=== PATIENT | male | born 1975 | race Caucasian/White ===

== ENCOUNTER 2016-10-17 12:57 | Emergency (ER) | payer BC ==
[2016-10-17 13:09] VITALS: BP 113/76
--- NOTE | 2016-10-17 14:01 | UC ---
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 PRESENTS TODAY WITH ACUTE ONSET TWO DAY HISTORY OF LEFT EYE INCREASED BLURRINESS. CHANGED CONTACT LENS WITHOUT REMEDY. NO FEVER. NO REDNESS OR DISCHARGE. NO PAIN WITH EYE MOVEMENT. NO HEADACHE. NO DISCHARGE. NO LOSS OF VISUAL FIELD. NO MOTOR, SPEECH OR NEUROLOGIC DEFECTS. NO NEW PHOTOPHOBIA (PATINET COMPLAINS OF CHRONIC LIGHT HYPERSENSITIVITY ). ADDITIONAL NOTE: [facility] CALLED FOR CONSULT, BUT WEEKEND CALL THERAPIST STATED THAT SCOTT WAS NOT PATENT LAW SPECIALIST FOR [facility], ONLY PATENT LAW SPECIALIST FOR EMERGENCY DEPARTMENT. - History of Current Complaint Chief Complaint: UCEye Stated Complaint: EYE/FOCUS COMPLAINT Time Seen by Provider: 10/17/16 13:07 Hx Obtained From: Patient, Family/Medical Office Supervisor Onset/Duration: Sudden Onset, Lasting Days, Still Present, Worse Since - WORSENING OVER THE LAST TWO DAYS Severity Initially: Mild Severity Currently: Mild Location of Injury: Other - NO INJURY IMPAIRED FOCUS LEFT EYE Character: Dull Aggravating Factor(s): Nothing Alleviating Factor(s): Nothing Associated Signs And Symptoms: Positive: Vision Impairment Left Related History: Other - HISTORY OF MACULAR DYSTROPHY - Risk Factors Penetrating Injury Risk Factor: Negative Globe Rupture Risk Factors: Negative Optic Artery Occlusion Risk Factors: Negative - Allergies/Home Medications Allergies/Adverse Reactions: Allergies Allergy/AdvReac Type Severity Reaction Status Date / Time No Known Allergies Allergy Verified 02/17/16 12:37 PMH/Surg Hx/FS Hx/Imm Hx Previously Healthy: Yes Endocrine History Of: Denies: Diabetes, Thyroid Disease Cardiovascular History Of: Denies: Cardiac Disorders, Hypertension, Pacemaker/ICD Respiratory History Of: Denies: COPD, Asthma GI/ History Of: Denies: Ulcer - Surgical History Surgical History: Yes Surgery Procedure, Year, and Place: COLONOSCOPY WITH SEDATION, RIGHT KNEE MENISCUS SURGERY; subq cysts removed (wrist and back) - Family History Known Family History: Positive: Hypertension - Social History Occupation: Employed Full-time Lives: With Family Alcohol Use: Occasionally Alcohol Amount: 3-4 16 OUNCE BEERS/WEEK Substance Use Type: None Smoking Status (MU): Never Smoked Tobacco Review of Systems Constitutional: Negative Skin: Negative Eyes: Blurred Vision - LEFT ONLY ENT: Negative Respiratory: Negative Cardiovascular: Negative Gastrointestinal: Negative Genitourinary: Negative Motor: Negative Neurovascular: Negative Musculoskeletal: Negative Neurological: Negative Psychological: Negative All Other Systems Reviewed And Are Negative: Yes Physical Exam Triage Information Reviewed: Yes Appearance: Well-Appearing, No Pain Distress, Well-Nourished Vital Signs: Initial Vital Signs Temp 98.5 F 10/17/16 13:03 Pulse 92 10/17/16 13:03 Resp 18 10/17/16 13:03 BP 113/76 10/17/16 13:03 Pulse Ox 99 10/17/16 13:03 Eyes: Positive: Conjunctiva Clear, Other: - LEFT EYE BLURRED FOCUS; INCREASED EYE STRAIN IN LEFT EYE TO COORDINATE AND IDENTIFY OBJECTS ENT Exam: Normal ENT: Positive: Normal ENT inspection, Hearing grossly normal, Pharynx normal, TMs normal Dental Exam: Normal Neck exam: Normal Neck: Positive: Supple, Nontender, No Lymphadenopathy Respiratory Exam: Normal Respiratory: Positive: Chest non-tender, Lungs clear, Normal breath sounds, No respiratory distress, No accessory muscle use Cardiovascular Exam: Normal Cardiovascular: Positive: RRR, No Murmur, Pulses Normal Abdominal Exam: Normal Abdomen Description: Positive: Nontender, No Organomegaly Musculoskeletal Exam: Normal Musculoskeletal: Positive: Strength Intact, ROM Intact Neurological Exam: Normal, Other - CN 2 -12 INTACT; NORMALLY RESPONSIVE PATELLAR REFLEXES Neurological: Positive: Alert, Muscle Tone Normal Psychological Exam: Normal Skin Exam: Normal Eye Complaint Course/Dx - Differential Dx/Diagnosis Differential Diagnosis/HQI/PQRI: Corneal Abrasion, Detached Retina, Glaucoma, Orbital Cellulitis, Retinal Artery Occlusion Provider Diagnoses: LEFT EYE VISUAL IMPAIRMENT - Physician Notification/Consults Discussed Patient Care With: DR MARCH Time Discussed With Above Provider: 13:35 Instructed by Provider To: MD Will See In ED Discharge - Discharge Plan Condition: Stable Disposition: TRANS HIGHER LV OF CARE FAC Referrals: No Primary Care Phys,NOPCP [Medical Doctor] -
== END 2016-10-17 14:00 | disposition short-term general hospital (02) ==
LOC: UCEAST 12:57
DX: H54.62 Unqualified visual loss, left eye, normal vision right eye (principal); H35.30 Unspecified macular degeneration
CPT/HCPCS: 99212; G0463

== ENCOUNTER 2016-10-17 14:18 | Emergency (ER) | payer BC ==
--- NOTE | 2016-10-17 16:10 | ED ---
Throat Pain/Nasal Congestion - HPI Summary HPI Summary: Pt here w/ acute on chronic Lt eye change which started yesterday. Noticed a change while working on his computer after a few hours in the AM that felt like he was "wearing someone else's glasses" - difficulty focusing, like his contact was not seated correctly. He went home to rest eyes from computer screen - removed contacts and rinsed them before reapplying. No change. He then tried a different pair of contacts to see if this would help - no change. Watched a movie that night which was "okay". Took contacts out before bed. Slept well. Put contacts back onto eye in the AM and issue still present which is why he came in today. Initially called Kathy's office for an appt this week but only spoke w/ his on-call service. Went to who recommended he come here as Kathy was only on-call for the ED. Also that pt may benefit from head CT per pt. He has not tried wearing his glasses only and does have an astigmatism which requires contact lens to be seated just so for clarity. He also admits to prolonged bright sun exposure this past week, one day in particular which resulted in prolonged sun light in his site. He denies trauma to the eye or head and no pain, itching, irritation, swelling, redness or d/c nor does he have floaters or a veil in his vision. Denies nausea, vomiting, photophobia, neck pain, numbness, weakness, difficulty focusing mentally, confusion. No stefano MCKNIGHT although he reports a mild straining MCKNIGHT on this side from difficulty trying to focus w/ this eye. - History of Current Complaint Chief Complaint: EDEyeProblem Time Seen by Provider: 10/17/16 15:24 Hx Obtained From: Patient, Family/Defective Cigarette Slitter - - Allergies/Home Medications Allergies/Adverse Reactions: Allergies Allergy/AdvReac Type Severity Reaction Status Date / Time No Known Allergies Allergy Verified 02/17/16 12:37 PMH/Surg Hx/FS Hx/Imm Hx Previously Healthy: Yes Endocrine/Hematology History: Denies: Hx Anticoagulant Therapy, Hx Blood Disorders, Hx Diabetes, Hx Thyroid Disease, Hx Unexplained Bleeding Cardiovascular History: Denies: Hx Hypertension, Hx Pacemaker/ICD Respiratory History: Reports: Other Respiratory Problems/Disorders - RARE OCCASION DIF. BREATHING USES A INHALER-STATES MAYBE 1-2 TIMES PER YEAR Denies: Hx Asthma, Hx Chronic Obstructive Pulmonary Disease (COPD) GI History: Reports: Hx Gastroesophageal Reflux Disease - ON OCCASION, Hx Irritable Bowel, Other GI Disorders - BACTERIAL OVERGROWTH IN SMALL INTESTINE- ON ANTIBIOTICS FOR Denies: Hx Cirrhosis, Hx Ulcer Musculoskeletal History: Reports: Hx Arthritis - RIGHT KNEE Sensory History: Reports: Hx Contacts or Glasses - both Denies: Hx Hearing Aid Opthamlomology History: Reports: Hx Contacts or Glasses - both, Other Sensory Impairments - B/L macular dystrophy Neurological History: Denies: Hx CVA, Hx Migraine, Hx Seizures, Hx Transient Ischemic Attacks (TIA) Psychiatric History: Denies: Hx Panic Disorder - Surgical History Surgery Procedure, Year, and Place: COLONOSCOPY WITH SEDATION, RIGHT KNEE MENISCUS SURGERY; subq cysts removed (wrist and back) Hx Anesthesia Reactions: Yes - DOESN'T LIKE EFFECTS OF VERSED Infectious Disease History: No Infectious Disease History: Denies: Hx Clostridium Difficile, Hx Hepatitis, Hx Human Immunodeficiency Virus (HIV), Hx of Known/Suspected MRSA, Hx Shingles, Hx Tuberculosis, Hx Known/ Suspected VRE, Hx Known/Suspected VRSA, History Other Infectious Disease, Traveled Outside the [place] in Last 30 Days - Family History Known Family History: Positive: Hypertension - Social History Occupation: Employed Full-time Lives: With Family Alcohol Use: Occasionally Alcohol Amount: 3-4 16 OUN[employer] BEERS/WEEK Hx Substance Use: No Substance Use Type: Reports: None Hx Tobacco Use: No Smoking Status (MU): Never Smoked Tobacco Review of Systems Negative: Fever, Chills, Fatigue Eyes: Other - see HPI Negative: Photophobia, Drainage, Erythema Negative: Sore Throat, Ear Ache, Nasal Discharge Negative: Chest Pain Negative: Shortness Of Breath, Cough Gastrointestinal: Negative Negative: Vomiting, Nausea Positive: no symptoms reported Musculoskeletal: Negative Skin: Negative Negative: Headache, Weakness, Paresthesia, Numbness, Syncope, Slurred Speech Psychological: Normal All Other Systems Reviewed And Are Negative: Yes Physical Exam Triage Information Reviewed: Yes Vital Signs On Initial Exam: Initial Vitals Temp Pulse Resp BP Pulse Ox 98 F 75 16 138/96 100 10/17/16 14:20 10/17/16 14:20 10/17/16 14:20 10/17/16 14:20 10/17/16 14:20 Vital Signs Reviewed: Yes Appearance: Positive: Well-Appearing, No Pain Distress, Well-Nourished Skin: Positive: Warm, Dry - no erythema or lesions over face Head/Face: Positive: Normal Head/Face Inspection Eyes: Positive: Normal, EOMI - painless, INGRIS - no photophobia, no pain;, Conjunctiva Clear, Other: - funduscopic exam limited d/t pt wearing contact lenses and pupils poorly dilated however vessels were visualized to an extent and appear to be w/o AV knicking, no hemorrhage observed. Negative: Conjunctiva Inflammed, Discharge ENT: Positive: Hearing grossly normal, Pharynx normal - mucosa moist. Negative : Nasal congestion, Nasal drainage Neck: Positive: Supple Respiratory/Lung Sounds: Positive: Breath Sounds Present Cardiovascular: Positive: Normal Musculoskeletal: Positive: Normal, Strength/ROM Intact Neurological: Positive: Normal, Sensory/Motor Intact, Alert, Oriented to Person Place, Time, CN Intact II-III Psychiatric: Positive: Normal - Clarke Coma Scale Coma Scale Total: 15 Diagnostics - Vital Signs Vital Signs Temp Pulse Resp BP Pulse Ox 10/17/16 14:20 98 F 75 16 138/96 100 - Laboratory Lab Statement: Any lab studies that have been ordered have been reviewed, and results considered in the medical decision making process. EENT Course/Dx - Course Course Of Treatment: Pt presents w/ Lt eye "focus" issue since yesterday. Painless. Called Dr. Chavez who recommended removing contacts for the and following up on Wednesday. Pt requesting CT scan - spoke w/ radiology (Dr. Valdez) who given pt's sx, does not recommend CT scan. Discussed w/ pt and who agree to monitor sx over the weekend, taking ocular precautions discussed in d/c summary, and f/u w/ Kathy Wednesday. Also reviewed danger s/sx of when to return to ED. Pt and agree w/ plan and voice understanding. - Diagnoses Provider Diagnoses: Visual changes - Provider Notifications Discussed Care of Patient with: Troy Chavez and Courtney Discharge - Discharge Plan Condition: Stable Disposition: HOME Patient Education Materials: Blurred Vision (ED) Forms: *Work Release Referrals: Yobani Chavez MD [Medical Doctor] - Additional Instructions: The cause of your recent visual change in your Left eye is unknown at this time however discussion about recent sun exposure could be a possible trigger. It is advised that you remove your contacts lenses and wear your glasses over the weekend. It is also advised that you protect your eyes from bright lights and try to transition slwoly from dark to light and vice versa. Follow-up with Dr. Chavez on Wednesday. Call office in the morning to schedule appointment. *If you develop visual loss, floaters, veiling, pain or severe headache, return to ED
[2016-10-17 16:25] VITALS: BP 138/92
== END 2016-10-17 16:24 | disposition home or self-care (01) ==
LOC: ED 14:18
DX: H53.9 Unspecified visual disturbance (principal)
CPT/HCPCS: 99282

== ENCOUNTER 2017-07-18 01:50 | Emergency (ER) | payer BC ==
[2017-07-18 02:37] LABS: Hematocrit 43 % (42-52); Hemoglobin 14.5 g/dl (14.0-18.0); Mean Corpuscular HGB Conc 34 g/dl (31-36); Mean Corpuscular Hemoglobin 29 pg (27-31); Mean Corpuscular Volume 86 fL (80-94); Mean Platelet Volume 9 um3 (7.4-10.4); Red Blood Count 4.99 10^6/ul (4.0-5.4); Red Cell Distribution Width 13 % (10.5-15); White Blood Count 7.4 10^3/ul (3.5-10.8)
[2017-07-18 02:53] LABS: Albumin 4.3 g/dL (3.2-5.2); BUN/Creatinine Ratio 20.9 (8-20); Calcium 9.2 mg/dL (8.6-10.3); EGFR African American 117.5 (>60); EGFR Non-African American 91.4 (>60); Potassium 3.8 mmol/L (3.5-5.0); Total Bilirubin 0.5 mg/dL (0.2-1.0); Total Protein 7.3 g/dL (6.4-8.9)
[2017-07-18] MEDS ORDERED: Ondansetron INJ* 2 MG/ML VIAL IV ONE (02:57)
[2017-07-18] MEDS ORDERED: NS 0.9% 1000 ML* 1,000 ML IV ONE (02:57)
[2017-07-18] MEDS ORDERED: HYDROmorphone INJ* 2 MG/ML CARPUJECT SYRINGE IV SLOW PU ONE ×2 (02:57→04:30)
[2017-07-18] MEDS ORDERED: Iohexol 300* (CONTRAST) 10 ML SDV IV ONE (03:24)
[2017-07-18 05:01] LABS: Urine Bilirubin Negative (Negative); Urine Glucose Negative (Negative); Urine Nitrite Negative (Negative)
--- NOTE | 2017-07-18 06:33 | ED ---
Nitin Somers Tiffany, scribguerda for Kody Topete on 07/18/17 at 0321 . Abdominal Pain/Male - HPI Summary HPI Summary: This patient is a 41 year old M presenting to [facility] accompanied by with a chief complaint of sharp RUQ abdominal pain since three hours ago. The patient rates the pain 9/10 in severity. Symptoms aggravated by nothing. Symptoms alleviated by nothing. Patient denies vomiting and nausea. Patient has a history of gallstones. He has been eating meat and dairy recently. His last gallstone was a few months ago. - History of Current Complaint Chief Complaint: EDAbdPain Stated Complaint: RT FLANK PAIN Time Seen by Provider: 07/18/17 02:29 Hx Obtained From: Patient Onset/Duration: Lasting Hours - 3 hrs ago, Still Present Severity Currently: Severe Pain Intensity: 9 Pain Scale Used: 0-10 Numeric Location: Discrete At: RUQ Character: Sharp Aggravating Factor(s): Nothing Alleviating Factor(s): Nothing Associated Signs And Symptoms: Negative: Nausea, Vomiting - Allergies/Home Medications Allergies/Adverse Reactions: Allergies Allergy/AdvReac Type Severity Reaction Status Date / Time No Known Allergies Allergy Verified 02/17/16 12:37 PMH/Surg Hx/FS Hx/Imm Hx Previously Healthy: No Endocrine/Hematology History: Denies: Hx Anticoagulant Therapy, Hx Blood Disorders, Hx Diabetes, Hx Thyroid Disease, Hx Unexplained Bleeding Cardiovascular History: Denies: Hx Hypertension, Hx Pacemaker/ICD Respiratory History: Reports: Other Respiratory Problems/Disorders - RARE OCCASION DIF. BREATHING USES A INHALER-STATES MAYBE 1-2 TIMES PER YEAR Denies: Hx Asthma, Hx Chronic Obstructive Pulmonary Disease (COPD) GI History: Reports: Hx Gastroesophageal Reflux Disease - ON OCCASION, Hx Irritable Bowel, Other GI Disorders - BACTERIAL OVERGROWTH IN SMALL INTESTINE- ON ANTIBIOTICS FOR Denies: Hx Cirrhosis, Hx Ulcer Musculoskeletal History: Reports: Hx Arthritis - RIGHT KNEE Sensory History: Reports: Hx Contacts or Glasses - both, Other Sensory Impairments - B/L macular dystrophy Denies: Hx Hearing Aid Opthamlomology History: Reports: Hx Contacts or Glasses - both, Other Sensory Impairments - B/L macular dystrophy Neurological History: Denies: Hx CVA, Hx Migraine, Hx Seizures, Hx Transient Ischemic Attacks (TIA) Psychiatric History: Denies: Hx Panic Disorder - Surgical History Surgery Procedure, Year, and Place: COLONOSCOPY WITH SEDATION, RIGHT KNEE MENISCUS SURGERY; subq cysts removed (wrist and back) Hx Anesthesia Reactions: Yes - DOESN'T LIKE EFFECTS OF VERSED - Immunization History Date of Tetanus Vaccine: unk Date of Influenza Vaccine: unk Infectious Disease History: No Infectious Disease History: Denies: Hx Clostridium Difficile, Hx Hepatitis, Hx Human Immunodeficiency Virus (HIV), Hx of Known/Suspected MRSA, Hx Shingles, Hx Tuberculosis, Hx Known/ Suspected VRE, Hx Known/Suspected VRSA, History Other Infectious Disease, Traveled Outside the [place] in Last 30 Days - Family History Known Family History: Positive: Hypertension - Social History Alcohol Use: Occasionally Alcohol Amount: 3-4 16 OUNCE BEERS/WEEK Hx Substance Use: No Substance Use Type: Reports: None Hx Tobacco Use: No Smoking Status (MU): Never Smoked Tobacco Review of Systems Negative: Fever Positive: Abdominal Pain - RUQ. Negative: Vomiting, Nausea All Other Systems Reviewed And Are Negative: Yes Physical Exam - Summary Physical Exam Summary: Appearance: Well appearing, no pain distress Skin: warm, dry, reflects adequate perfusion Head/face: normal Eyes: EOMI, INGRIS ENT: normal Neck: supple, non-tender Respiratory: CTA, breath sounds present Cardiovascular: RRR, pulses symmetrical Abdomen: tenderness in RUQ Bowel: present Musculoskeletal: normal, strength/ROM intact Neuro: normal, sensory motor intact, A&Ox3 Triage Information Reviewed: Yes Vital Signs On Initial Exam: Initial Vitals Temp Pulse Resp BP Pulse Ox 97.8 F 66 18 160/102 100 07/18/17 01:54 07/18/17 01:54 07/18/17 01:54 07/18/17 01:54 07/18/17 01:54 Vital Signs Reviewed: Yes - Clarke Coma Scale Coma Scale Total: 15 Diagnostics - Vital Signs Vital Signs Temp Pulse Resp BP Pulse Ox 07/18/17 03:14 22 07/18/17 01:54 97.8 F 66 18 160/102 100 - Laboratory Lab Results: Lab Results 07/18/17 07/18/17 07/18/17 Range/Units 02:16 02:16 02:16 WBC 7.4 (3.5-10.8) 10^3/ul RBC 4.99 (4.0-5.4) 10^6/ul Hgb 14.5 (14.0-18.0) g/dl Hct 43 (42-52) % MCV 86 (80-94) fL MCH 29 (27-31) pg MCHC 34 (31-36) g/dl RDW 13 (10.5-15) % Plt Count 153 (150-450) 10^3/ul MPV 9 (7.4-10.4) um3 Neut % (Auto) 57.5 (38-83) % Lymph % (Auto) 32.2 (25-47) % [place] % (Auto) 8.0 (1-9) % Eos % (Auto) 1.5 (0-6) % Baso % (Auto) 0.8 (0-2) % Absolute Neuts (auto) 4.2 (1.5-7.7) 10^3/ul Absolute Lymphs (auto) 2.4 (1.0-4.8) 10^3/ul Absolute Monos (auto) 0.6 (0-0.8) 10^3/ul Absolute Eos (auto) 0.1 (0-0.6) 10^3/ul Absolute Basos (auto) 0.1 (0-0.2) 10^3/ul Absolute Nucleated RBC 0 10^3/ul Nucleated RBC % 0 INR (Anticoag Therapy) 0.87 (0.77-1.02) APTT 30.1 (26.0-36.3) seconds Sodium 136 (133-145) mmol/L Potassium 3.8 (3.5-5.0) mmol/L Chloride 102 (101-111) mmol/L Carbon Dioxide 27 (22-32) mmol/L Anion Gap 7 (2-11) mmol/L BUN 19 (6-24) mg/dL Creatinine 0.91 (0.67-1.17) mg/dL Est GFR ( Amer) 117.5 (>60) Est GFR (Non-Af Amer) 91.4 (>60) BUN/Creatinine Ratio 20.9 H (8-20) Glucose 107 H (70-100) mg/dL Calcium 9.2 (8.6-10.3) mg/dL Total Bilirubin 0.50 (0.2-1.0) mg/dL AST 22 (13-39) U/L ALT 39 (7-52) U/L Alkaline Phosphatase 71 (34-104) U/L Troponin I 0.00 (<0.04) ng/mL Total Protein 7.3 (6.4-8.9) g/dL Albumin 4.3 (3.2-5.2) g/dL Globulin 3.0 (2-4) g/dL Albumin/Globulin Ratio 1.4 (1-3) Lipase 37 (11.0-82.0) U/L Result Diagrams: 07/18/17 02:16 07/18/17 02:16 Lab Statement: Any lab studies that have been ordered have been reviewed, and results considered in the medical decision making process. - Radiology CXR Radiology Interpretation Completed By: ED Physician - CXR is negative - CT Abd/Pel CT Interpretation Completed By: Radiologist - Cholelithiasis with gallbladder distention. ED physician has reviewed this radiology report. - EKG 02:31 Cardiac Rate: NL EKG Rhythm: Sinus Rhythm - 65 BPM EKG Interpretation: No acute changes Abdominal Pain Fem Course/Dx - Course Course Of Treatment: This patient is a 41 year old M c/o sharp RUQ abdominal pain since three hours ago. An EKG reveals sinus rhythm and no acute changes. CXR is, per ED physician, normal. CT Abd/Pel reveals, per radiologist, Cholelithiasis with gallbladder distention. UA obtained. In the ED course the patient was given Dilaudid and Zofran. Dr. Saxena (surgery) agreed to admit the patient. The patient is agreeable with this plan. - Diagnoses Differential Diagnosis/HQI/PQRI: Appendicitis, Diverticulitis, Peptic Ulcer Disease, Ureteral Stone, Other - cholecystitis Provider Diagnoses: Abdominal pain, Gallstones - Provider Notifications Discussed Care Of Patient With: Ej Saxena Time Discussed With Above Provider: 06:14 Instructed by Provider To: Other - Dr. Saxena (surgery) will accept the patient. Discharge - Discharge Plan Condition: Stable Disposition: ADMITTED TO [facility] Discharge Disposition Comment: Admitted to surgery Referrals: Brielle Pineda MD [Primary Care Provider] - The documentation as recorded by the Nitin smith Tiffany accurately reflects the service I personally performed and the decisions made by , Kody Topete.
--- NOTE | 2017-07-18 09:23 | RAD ---
Indication: Epigastric pain. 2 views of the chest demonstrate no mediastinal shift. Heart is of normal size and configuration. Lung patel are clear. IMPRESSION: No active cardiopulmonary disease is noted.
--- NOTE | 2017-07-18 09:30 | RAD ---
Indication: Right upper quadrant pain. Contrast: Administered 131.1 ml of OMNIPAQUE 300 mg/ml CT of the abdomen and pelvis was performed after oral and IV contrast administration. Coronal and sagittal reconstructed images were obtained. The lung bases demonstrate no pleural fluid, nodules or masses. Heart demonstrates no pericardial effusion. The liver is normal in size. No focal lesions or intrahepatic ductal dilatation is noted. There are gallstones in the gallbladder. There is distention of the gallbladder wall with slight hyperenhancement of the liver adjacent to the gallbladder fundus. This may represent focal fatty sparing or hyperenhancement. Clinical correlation to exclude cholecystitis. The pancreas demonstrates no mass or pancreatic duct dilatation. The spleen is normal in size. No adrenal masses are noted. The kidneys demonstrate symmetric nephrograms. No hydronephrosis is noted. No dilated loops of bowel are noted. CT of the pelvis demonstrates no retroperitoneal or pelvic lymphadenopathy. Diverticulosis without definite evidence of diverticulitis is noted. The appendix is visualized and is normal. The prostate and seminal vesicles are unremarkable. No hernias are noted. IMPRESSION: Distended gallbladder with gallstones. No wall thickening or pericholecystic fluid is noted although there is hyperdense liver surrounding the gallbladder fundus. Whether this represents focal fatty sparing or hyperenhancement from cholecystitis cannot be easily differentiated and clinical correlation is suggested.
--- NOTE | 2017-07-18 09:46 | RAD ---
Indication: Gallstones. Real-time sonography of the right upper quadrant was performed. Comparison is made with CT dated July 18, 2017. The liver is normal in size. Hepatic steatosis. There may be an area of focal fatty sparing adjacent to the gallbladder. The gallbladder is distended. There is a 2 cm gallstone in the gallbladder. Gallbladder wall measures 2.8 mm which is borderline abnormal. No evidence of sonographic Chua's sign is noted. The right kidney measures 12.5 x 6.0 x 5.7 cm with no hydronephrosis. The pancreas is obscured by overlying gas. IMPRESSION: Cholelithiasis without biliary ductal dilatation. The bladder wall measures 2.8 mm which is borderline abnormal. There is an area of focal fatty sparing adjacent to the gallbladder. The possibility of cholecystitis is not excluded and clinical correlation is suggested.
[2017-07-18 09:57] VITALS: BP 148/73
--- NOTE | 2017-07-18 10:11 | ED ---
Deirdre Somers Abhishek, scribed for Jose Gilman MD on 07/18/17 at 0934 . Progress - Progress Note Progress Note: We performed a ReEval at 0925. Patient is pain free. We advised a low fat diet and small portion sizes. - Consult/PCP Consult/PCP: Dr. Saxena Consult Reason/Comments: He recommends seeing patient again as an outpatient in one week. Re-Evaluation - Re-Evaluation 0925 Re-Evaluation Time: 09:25 Comment: Patient is pain free. We advised a low fat diet and small portion sizes. Course/Dx - Course Course Of Treatment: This patient was signed out from Dr. Topete, pending disposition. We performed a ReEval at 0925. Patient is pain free. We advised a low fat diet and small portion sizes. Dr. Saxena recommends seeing patient again as an outpatient in one week. The patients condition is stable and will be discharged to home with Dx of gallstones. - Diagnoses Provider Diagnoses: Gallstones The documentation as recorded by the Deirdre smith Abhishek accurately reflects the service I personally performed and the decisions made by Mukul harvey Jerry, MD.
--- NOTE | 2017-07-18 11:46 | CONS ---
CC: Brielle Pineda MD. SURGICAL CONSULTATION REPORT: DATE OF CONSULT: 07/18/17. REASON FOR CONSULT: Gallstones. HISTORY OF PRESENT ILLNESS: This is a 41-year-old male with a known history of gallstones for the past 2-1/2 years who presented to the [facility] Emergency Room for the second time with complaints of right upper quadrant abdominal pain starting postprandially associated with fatty foods and no nausea or vomiting. The patient reports he had eaten eggs and gallegos for breakfast, then a bagel with cream cheese, and pork for dinner. He had no fever or chills, no change in the color of his urine or his stools. He does have episodes of diarrhea which he attributes to "irritable bowels." His gallstones were diagnosed as mentioned 2-1/2 years ago at which point, he had been seen in the emergency room and at that time had an ultrasound of the gallbladder demonstrating gallstones. The patient had been recommended to have cholecystectomy at that time. However, he opted for alternative treatment. He has found that over the past couple of years by managing his diet and taking apple cider vinegar for attacks, his pain usually abates within 15 minutes. This particular attack started last night about 11 p.m. and did not improve despite the usual measures. He then came to the emergency room for evaluation. In the emergency room, he was seen by the physician who noted right upper quadrant tenderness and ordered laboratory work and a CT scan of the abdomen. His lab work was essentially normal including normal LFTs. However, his CT scan demonstrated gallstones with a gallstone in the neck of the gallbladder without evidence of gallbladder wall thickening, pericholecystic fluid or bile duct dilation. Based on the findings a surgical consult requested. He received pain medication and is at present pain free. PAST MEDICAL HISTORY: "Irritable bowel," small bowel bacterial overgrowth x2 ( managed by Dr. Sapp). PAST SURGICAL HISTORY: Right knee arthroscopy for meniscus tear and colonoscopy. MEDICATIONS: None. ALLERGIES: None. SOCIAL HISTORY: He does not use tobacco. He does drink alcohol on a regular basis. FAMILY HISTORY: Mother with history of obesity, hypertension and diabetes. Father has a history of prostate CA. REVIEW OF SYSTEMS: A 14-point review of systems was completed with pertinent positives and negatives as reported above and otherwise negative. PHYSICAL EXAMINATION: Vital Signs: 6 feet and 2 inches tall, 216 pounds, BMI 27.7. Blood pressure 120/68, pulse 84, respirations 18, temperature 97.8, O2 sat 94% on room air. General: Well-developed, well-nourished, 41-year-old male in no acute distress. HEENT: Normocephalic, atraumatic. Sclerae anicteric and mucous membranes moist. No otorrhea or rhinorrhea. Neck: Symmetrical. Trachea midline. No palpable lymphadenopathy or masses. Lungs: Clear to auscultation bilaterally. No wheezes, rales or rhonchi. Heart: S1, S2. No murmurs, rubs or gallops appreciated. Abdomen: No scars. Nondistended , bowel sounds present, soft, nontender, no palpable masses or hernia, no hepatosplenomegaly, no Chua sign. Extremities: Warm, no cyanosis, clubbing or edema. LABORATORY DATA: CBC shows WBC 7.4, hemoglobin 14.5, hematocrit 43, platelet 153, normal differential. Chemistries: Sodium 136, potassium 3.8, chloride 102 , carbon dioxide 27, BUN 19, creatinine 0.9, glucose 107, total bilirubin 0.5. AST 22, ALT 39, alk phos 71, lipase 37. Coagulation study: INR 0.87, PTT 30. Urinalysis, straw colored clear urine, specific gravity 1.060. Negative for ketones, blood, nitrites, leukocyte esterase. Preliminary imaging reports as reported above. The CT scan images were independently reviewed by me. IMPRESSION: A 41-year-old male with known history of gallstones now with second severe attack of biliary colic which has resolved. PLAN/RECOMMENDATIONS: I discussed the findings with the patient and his who accompanied him. I explained the nature of gallstones and the potential complications including acute cholecystitis, pancreatitis. I recommended laparoscopic cholecystectomy. I reviewed the nature of the procedure, its indications, risks, benefits and alternatives including the option of no treatment. I explained the need for general anesthesia. I discussed expectations regarding hospitalization and recovery and the possibility of an open procedure. The risks were explained including, but not limited to bleeding , infection, pain, scarring, blood clots, pneumonia, visceral injury, nausea, vomiting, diarrhea, and risk of general endotracheal anesthesia. The had an opportunity to ask questions and all questions were answered. He stated his understanding. The patient is agreeable to proceed with laparoscopic cholecystectomy. However , this will be scheduled as an outpatient procedure by the [facility] office. The office will contact him to make these arrangements. I provided my contact information to the patient and his and they will call if any further questions or problems arise. [id number]/[facility] #: [id number] MTDD
== END 2017-07-18 09:59 | disposition short-term general hospital (02) ==
LOC: ED 01:50
DX: K80.20 Calculus of gallbladder without cholecystitis without obstruction (principal)
CPT/HCPCS: 36415; 71020; 74177; 76705; 80053; 81003; 83690; 84484; 85025; 85610; 85730; 93005; 96374; 96375; 96376; 99283; J1170; J2405; Q9967

== ENCOUNTER 2017-07-27 06:20 | Day surgery (SDC) | payer BC ==
[~2017-07-27 06:20] MED LIST: Buffered Lidocaine 0.9% SYRIN* 5 ML/SYR SYRINGE INTRADERM ONE; Dexamethasone IV* 4 MG/ML 1 ML (4 MG) IV SLOW PU ONE; Famotidine IV* 10 MG/ML 2 ML (20 mg) IV ONE
[2017-07-27] MEDS ORDERED: Buffered Lidocaine 0.9% SYRIN* 5 ML/SYR SYRINGE ONE (07:09)
[2017-07-27] MEDS ORDERED: ceFAZolin 2 GM PREMIX (*) 2 GM/50 ML BAG IVPB ONE (07:09)
[2017-07-27] MEDS ORDERED: Famotidine IV* 10 MG/ML 2 ML (20 mg) ONE (07:09)
[2017-07-27] MEDS ORDERED: Dexamethasone IV* 4 MG/ML 1 ML (4 MG) ONE (07:09)
[2017-07-27] MEDS ORDERED: Bupivacaine 0.25% SDV* 30 ML ONE (07:17)
[2017-07-27] MEDS ORDERED: Lidocaine 2% PF * 5 ML VIAL ONE (07:40)
[2017-07-27] MEDS ORDERED: Mivacurium Chloride* 20 MG/10 ML VIAL IV ONE (07:40)
[2017-07-27] MEDS ORDERED: Propofol* 10 MG/ML 20 ML BTL IV PUSH ONE (07:40)
[2017-07-27] MEDS ORDERED: fentaNYL* 50 MCG/ML 5 ML VIAL (250 MCG VIAL) ONE (07:41)
[2017-07-27] MEDS ORDERED: HYDROcodone/ACETAMIN 5-325 MG* 1 TAB PO PRN (07:44)
[2017-07-27] MEDS ORDERED: fentaNYL* 50 MCG/ML 2 ML VIAL (100 MCG VIAL) IV PRN (07:44)
[2017-07-27] MEDS ORDERED: oxyCODONE/Acetamin 5/325 MG* TAB PO PRN (07:44)
[2017-07-27] MEDS ORDERED: PROCHLORPERAZINE INJ 5 MG/ML 2 ML VIAL IV PRN (07:44)
[2017-07-27] MEDS ORDERED: Ketorolac INJ* 30 MG/ML 1 ML VIAL ONE (08:23)
[2017-07-27] MEDS ORDERED: Ondansetron INJ* 2 MG/ML VIAL ONE (08:43)
--- NOTE | 2017-07-27 09:37 | PN ---
Progress Note - Progress Note Date of Service: 07/27/17 Note: Brief Operative Note: Preop Dx: Chronic calculous cholecystitis, Umbilical Hernia Post Dx: same Procedure: Laparascopic cholecystectomy w/ repair of umbilical hernia Anesthesia: GET Surgeon: Assist: IOANA Carpio and Rinku KELLY Fluids: 1L EBL:50 ml Drain: None Specimen: gallbladder Findings: dictated
[2017-07-27] MEDS ORDERED: HYDROcodone/ACETAMIN 5-325 MG* 1 TAB ONE (10:47)
[2017-07-27 11:35] VITALS: BP 131/87
--- NOTE | 2017-07-28 06:41 | OP ---
CC: Brielle Pineda MD * DATE OF OPERATION: 07/27/17 - [facility] DATE OF : 73 SURGEON: Ej Saxena MD DEAF/HARD OF HEARING SPECIALIST: IOANA Ocampo ANESTHESIOLOGIST: Jackson Blum MD ANESTHESIA: General endotracheal. PRE-OP DIAGNOSIS: Symptomatic cholelithiasis and umbilical hernia. POST-OP DIAGNOSIS: Symptomatic cholelithiasis and umbilical hernia. OPERATIVE PROCEDURE: Laparoscopic cholecystectomy and repair of umbilical hernia. ESTIMATED BLOOD LOSS: 50 mL. IV FLUIDS: 1 L of crystalloids. SPECIMENS: Gallbladder. DRAINS: None. COMPLICATIONS: None. COUNTS: Instrument, needle, and sponge counts correct. DESCRIPTION OF PROCEDURE: The patient was brought to the operating room and placed on the stable supine. Sequential compression devices were placed on both lower extremities. General anesthesia was administered. Abdomen was prepped and draped in the usual sterile fashion and he received appropriate intravenous antibiotics. Time out was performed. Local anesthetic was infiltrated into the skin and soft tissue prior to making each incision. Due to the presence of an umbilical hernia a curvilinear infraumbilical incision was created and the umbilical stalk was dissected free from the anterior abdominal wall and the hernia defect was entered and then a 12 -mm trocar was placed through the site and carbon dioxide was insufflated to a pressure of 15 mmHg. Under direct visualization, 5 mm trocars were placed in the subxiphoid position and 2 also in the right upper quadrant. Inspection of the abdominal cavity was performed. There were adhesions of the cecum to the right side of the abdominal wall. The small bowel appeared grossly normal as did the cecum and ascending colon. The base of the appendix appeared normal, though the distal portion of the appendix was in a more retrocecal position and due to the adhesions was not visualized. In the right upper quadrant the liver appeared normal. The gallbladder appeared to be chronically inflamed with adhesions of omentum to it. The gallbladder fundus was grasped and retracted superiorly and the omental adhesions were taken down with a combination of cautery and sharp dissection. Peritoneum investing the gallbladder was incised with cautery and dissected free. The dissection proceeded medially and laterally on the gallbladder to expose the cystic duct and cystic artery. Each structure was subsequently doubly clipped and divided. The gallbladder was then grasped at the cystic duct stump and retracted superiorly, and the cautery was used to free the gallbladder from attachments to the liver. There was some leakage of bile from an inadvertent cholecystotomy which was controlled by grasping the site. The gallbladder was then completely dissected off the liver , placed into a retrieval bag, and this was retrieved with a large gallstone. The site was then irrigated copiously with 2 L of warm saline until clear. There was a small amount of oozing from the liver bed which was controlled with cautery. Clips were noted to be intact. Ports were then removed under direct visualization and carbon-dioxide was released. The umbilical hernia was closed with interrupted 0 Polysorb suture and then the umbilical stalk was reapproximated with 3-0 absorbable suture and the skin was closed with 4-0 absorbable suture. Steri-Strips were applied. The patient tolerated the procedure well, was extubated and transferred to recovery in stable condition. [id number]/[facility] #: [id number] IVONE
== END 2017-07-27 11:34 | disposition home or self-care (01) ==
LOC: OR 06:20
PROVIDERS: ATTEND Surgery
DX: K80.12 Calculus of gallbladder with acute and chronic cholecystitis without obstruction (principal); K42.9 Umbilical hernia without obstruction or gangrene; R01.1 Cardiac murmur, unspecified; K58.9 Irritable bowel syndrome, unspecified; K21.9 Gastro-esophageal reflux disease without esophagitis
CPT/HCPCS: 88304; C1776; J0690; J1100; J1885; J2405; J2704; J3010